=== PATIENT | female | born 1950 | race Caucasian/White ===

== ENCOUNTER 2024-06-17 15:11 | Emergency (ER) | payer MEDICARE, BC ==
[2024-06-17] MEDS ORDERED: Sodium Chloride 0.9% 2.5 ML Syringe FLUSH PRN (15:29)
[2024-06-17] MEDS ORDERED: Sodium Chloride 0.9% 10 ML Syringe FLUSH PRN (15:29)
[2024-06-17] MEDS: Albuterol/Ipratropium 3.0-0.5 MG/3 ML Neb Soln NEB STA (16:31)
[2024-06-17 16:40] LABS: BASOPHILS ABSOLUTE AUTO 0.09 K/uL (0.00-0.20); BASOPHILS PERCENT AUTO 1.1 % (0.0-1.0); EOSINOPHILS ABSOLUTE AUTO 0.16 K/uL (0.00-0.45); EOSINOPHILS PERCENT AUTO 1.9 % (0.0-6.0); HEMATOCRIT 44.1 % (37.0-47.0); IMMATURE GRAN ABSOLUTE AUTO 0.02 K/uL (0.00-0.05); IMMATURE GRAN PERCENT AUTO 0.2 % (0.0-0.4); LYMPHOCYTES PERCENT AUTO 35.6 % (24.0-44.0); MEAN CORPUSCULAR HEMOGLOBIN 28.8 pg (28.0-32.0); MEAN CORPUSCULAR VOLUME 84.8 fL (83.0-99.0); MONOCYTES ABSOLUTE AUTO 0.42 K/uL (0.00-0.80); NEUTROPHILS ABSOLUTE AUTO 4.74 K/uL (1.80-7.70); NEUTROPHILS PERCENT AUTO 56.2 % (41.0-71.0); PLATELET COUNT,PLT 318 K/uL (150-400); WHITE BLOOD CELL COUNT,WBC 8.43 K/uL (3.9-11.3)
[2024-06-17] MEDS: Albuterol 0.083% 2.5 MG/3 ML Neb Soln NEB STA (16:41)
[2024-06-17 17:08] LABS: ALBUMIN 3.7 g/dL (3.4-5.0); BILIRUBIN TOTAL 0.5 mg/dL (0.2-1.0); CALCIUM 8.5 mg/dL (8.5-10.1); CARBON DIOXIDE,CO2 19.8 mmol/L (21.0-32.0); CREATININE 0.9 mg/dL (0.6-1.0); EST CRCL DRUG DOSING (CG) 49.35 mL/min; PROTEIN TOTAL,TP 7.3 g/dL (6.4-8.2)
[2024-06-17] MEDS: Iopamidol 755 MG/ML 500 ML Multipack Bottle IVPUSH STA (19:05)
== END 2024-06-17 20:33 | disposition home or self-care (01) ==
LOC: MW.ED 15:11
DX: J90 Pleural effusion, not elsewhere classified (principal); C50.911 Malignant neoplasm of unspecified site of right female breast; R79.89 Other specified abnormal findings of blood chemistry; Z79.899 Other long term (current) drug therapy; Z75.8 Other problems related to medical facilities and other health care
CPT/HCPCS: 36415; 71046; 71275; 80053; 83690; 83880; 84484; 85025; 87428; 93005; 94640; 99285; Q9967; J7620-GY

== ENCOUNTER 2024-07-07 09:20 | Day surgery (SDC) | payer MEDICARE, BC ==
[~2024-07-07 09:20] MED LIST: Bupivacaine 0.5% 30 ML SDV ONE; Lidocaine 1% 5 ML VIAL ONE; Sodium Chloride 0.9% 10 ML Syringe FLUSH PRN; Sodium Chloride 0.9% 2.5 ML Syringe FLUSH PRN; Sodium Chloride 0.9% 20 ML SDV IV PRN; ceFAZolin 2 GM in Sodium Chloride 0.9% 50 ML IV ONE
[2024-07-07] MEDS: Lactated Ringers 1,000 ML IV SCH (09:42)
[2024-07-07] MEDS ORDERED: Propofol 200 MG/20 ML SDV ONE (10:14)
[2024-07-07] MEDS ORDERED: fentaNYL 100 MCG/2 ML SDV ONE (10:14)
[2024-07-07] MEDS ORDERED: Dexamethasone 4 MG/ML 5 ML MDV ONE (10:36)
[2024-07-07] MEDS ORDERED: Ondansetron 4 MG/2 ML SDV ONE (10:36)
[2024-07-07] MEDS ORDERED: ceFAZolin 2 GM Vial ONE (10:45)
[2024-07-07] MEDS ORDERED: Phenylephrine HCl In 0.9% NaCl 1 MG/10 ML Syringe IVPUSH PRN (11:03)
[2024-07-07] MEDS ORDERED: Morphine 2 MG/ML SYRINGE IVPUSH PRN (11:03)
[2024-07-07] MEDS ORDERED: fentaNYL 50 MCG/ML SDV IVPUSH PRN (11:03)
[2024-07-07] MEDS ORDERED: Metoclopramide 10 MG/2 ML SDV IVPUSH PRN (11:03)
[2024-07-07] MEDS ORDERED: Naloxone 0.4 MG/ML SDV IVPUSH PRN (11:03)
[2024-07-07] MEDS ORDERED: HYDROmorphone 1 MG/ML Syringe IVPUSH PRN (11:03)
[2024-07-07] MEDS ORDERED: Ondansetron 4 MG/2 ML SDV IVPUSH PRN (11:03)
[2024-07-07] MEDS ORDERED: Albuterol 0.083% 2.5 MG/3 ML Neb Soln NEB PRN (11:03)
[2024-07-07] MEDS ORDERED: dexmedeTOMIDine HCl 200 MCG/2 ML SDV ONE (11:25)
== END 2024-07-07 13:05 | disposition home or self-care (01) ==
LOC: MW.SDS 09:20
PROVIDERS: ATTEND Surgery
DX: C50.111 Malignant neoplasm of central portion of right female breast (principal); C79.89 Secondary malignant neoplasm of other specified sites
CPT/HCPCS: 71045; 71045-26; 76000; 76000-26; J0131; J0665; J0690; J1100; J1642; J2405; J2704; J3010; J3490; J7120

== ENCOUNTER 2024-09-19 11:42 | Inpatient (IN) | payer MEDICARE, BC ==
[2024-09-19] MEDS: Sodium Chloride 0.9% 1,000 ML IV ONE (14:30)
[2024-09-19 14:36] LABS: BASOPHILS ABSOLUTE AUTO 0.04 K/uL (0.00-0.20); BASOPHILS PERCENT AUTO 0.4 % (0.0-1.0); EOSINOPHILS ABSOLUTE AUTO 0.07 K/uL (0.00-0.45); EOSINOPHILS PERCENT AUTO 0.7 % (0.0-6.0); HEMATOCRIT 31.8 % (37.0-47.0); HEMOGLOBIN 10.8 g/dL (12.0-16.0); IMMATURE GRAN ABSOLUTE AUTO 0.04 K/uL (0.00-0.05); IMMATURE GRAN PERCENT AUTO 0.4 % (0.0-0.4); LYMPHOCYTES ABSOLUTE AUTO 1.59 K/uL (1.00-4.80); LYMPHOCYTES PERCENT AUTO 15.2 % (24.0-44.0); MEAN CORPUSCULAR HEMOGLOBIN 29.2 pg (28.0-32.0); MEAN CORPUSCULAR VOLUME 85.9 fL (83.0-99.0); MONOCYTES ABSOLUTE AUTO 0.44 K/uL (0.00-0.80); MONOCYTES PERCENT AUTO 4.2 % (0.0-8.0); NEUTROPHILS ABSOLUTE AUTO 8.29 K/uL (1.80-7.70); NEUTROPHILS PERCENT AUTO 79.1 % (41.0-71.0); PLATELET COUNT,PLT 404 K/uL (150-400); WHITE BLOOD CELL COUNT,WBC 10.47 K/uL (3.9-11.3)
[2024-09-19] MEDS: fentaNYL 50 MCG/ML SDV IVPUSH ONE (14:51)
[2024-09-19 15:03] LABS: A/G RATIO 0.8 (0.9-1.6); ALBUMIN 2.4 g/dL (3.4-5.0); BILIRUBIN TOTAL 0.6 mg/dL (0.2-1.0); CALCIUM 7.3 mg/dL (8.5-10.1); CARBON DIOXIDE,CO2 25.2 mmol/L (21.0-32.0); CREATININE 0.8 mg/dL (0.6-1.0); EST CRCL DRUG DOSING (CG) 55.52 mL/min; MAGNESIUM 2.2 mg/dL (1.8-2.4); POTASSIUM,K 3.3 mmol/L (3.5-5.1); PROTEIN TOTAL,TP 5.3 g/dL (6.4-8.2)
[2024-09-19 15:08] LABS: LACTIC ACID 1.5 mmol/L (0.4-2.0)
[2024-09-19] MEDS: Piperacillin/Tazobactam 4.5 GM in Sodium Chloride 0.9% 100 ML IV ONE (15:53)
[2024-09-19] MEDS: Iopamidol 755 MG/ML 500 ML Multipack Bottle IVPUSH STA (16:06)
[2024-09-19] MEDS: Ondansetron 4 MG/2 ML SDV IVPUSH ONE (16:25)
[2024-09-19] MEDS: Morphine 4 MG/ML Syringe IVPUSH ONE (16:25)
[2024-09-19] MEDS: VANCOmycin 1.25 GM in Sodium Chloride 0.9% 250 ML IV ONE (17:03)
[2024-09-19] MEDS: Potassium Chloride 20 MEQ Tab.ER PO ONE (17:46)
[2024-09-19] MEDS ORDERED: oxyCODONE 5 MG Tab PO PRN (18:05)
[2024-09-19] MEDS ORDERED: Polyethylene Glycol 3350 Powder 17 GM Packet PO PRN (18:05)
[2024-09-19] MEDS ORDERED: Ondansetron 4 MG Tab.DIS PO PRN (18:05)
[2024-09-19] MEDS ORDERED: Acetaminophen 325 MG Tab PO PRN (18:05)
[2024-09-19] MEDS ORDERED: Naloxone 0.4 MG/ML SDV IVPUSH PRN (18:05)
[2024-09-19] MEDS ORDERED: Ondansetron 4 MG/2 ML SDV IVPUSH PRN (18:05)
[2024-09-19] MEDS ORDERED: Docusate Sodium 100 MG Cap PO PRN (18:05)
[2024-09-19] MEDS ORDERED: HYDROmorphone 0.5 MG/0.5 ML Syringe IVPUSH PRN (18:05)
[2024-09-19] MEDS: Sodium Chloride 0.9% 1,000 ML IV SCH (20:06)
[2024-09-19 20:39] LABS: BILIRUBIN,URINE NEGATIVE (NEGATIVE); COLOR,URINE YELLOW; GLUCOSE,URINE NEGATIVE (NEGATIVE); KETONES,URINE NEGATIVE (NEGATIVE); LEUKOCYTE ESTERASE,URINE SMALL (NEGATIVE); NITRITE,URINE NEGATIVE (NEGATIVE); OCCULT BLOOD,URINE NEGATIVE (NEGATIVE); PROTEIN,URINE NEGATIVE (NEGATIVE)
[2024-09-19 20:44] LABS: APPEARANCE,URINE HAZY
[2024-09-19 20:52] LABS: BACTERIA,URINE RARE (NEGATIVE); EPITHELIAL CELLS,URINE RARE (NONE-FEW); RBC,URINE 0-1 (0-2/HPF)
[2024-09-19] MEDS: cefTRIAXone 1 GM in Water For Injection, Sterile 10 ML IVPUSH SCH (22:10)
[2024-09-19] MEDS: Phosphorus #1 250 MG Tab PO SCH (23:20)
[2024-09-20 05:44] LABS: BASOPHILS ABSOLUTE AUTO 0.07 K/uL (0.00-0.20); BASOPHILS PERCENT AUTO 0.6 % (0.0-1.0); EOSINOPHILS ABSOLUTE AUTO 0.43 K/uL (0.00-0.45); EOSINOPHILS PERCENT AUTO 3.8 % (0.0-6.0); HEMATOCRIT 31.6 % (37.0-47.0); HEMOGLOBIN 10.5 g/dL (12.0-16.0); IMMATURE GRAN ABSOLUTE AUTO 0.06 K/uL (0.00-0.05); IMMATURE GRAN PERCENT AUTO 0.5 % (0.0-0.4); LYMPHOCYTES ABSOLUTE AUTO 1.53 K/uL (1.00-4.80); LYMPHOCYTES PERCENT AUTO 13.6 % (24.0-44.0); MEAN CORPUSCULAR HEMOGLOBIN 29.1 pg (28.0-32.0); MEAN CORPUSCULAR HGB CONC 33.2 g/dL (32.0-36.0); MEAN CORPUSCULAR VOLUME 87.5 fL (83.0-99.0); MEAN PLATELET VOLUME 9.2 fL (9.4-12.3); MONOCYTES ABSOLUTE AUTO 0.52 K/uL (0.00-0.80); MONOCYTES PERCENT AUTO 4.6 % (0.0-8.0); NEUTROPHILS ABSOLUTE AUTO 8.64 K/uL (1.80-7.70); NEUTROPHILS PERCENT AUTO 76.9 % (41.0-71.0); PLATELET COUNT,PLT 360 K/uL (150-400); RED BLOOD CELL COUNT 3.61 M/uL (4.10-5.30); WHITE BLOOD CELL COUNT,WBC 11.25 K/uL (3.9-11.3)
[2024-09-20] MEDS: Furosemide 40 MG/4 ML VIAL IVPUSH ONE (06:05)
[2024-09-20 06:27] LABS: A/G RATIO 0.7 (0.9-1.6); ALBUMIN 2.1 g/dL (3.4-5.0); BILIRUBIN TOTAL 0.6 mg/dL (0.2-1.0); CALCIUM 6.3 mg/dL (8.5-10.1); CARBON DIOXIDE,CO2 20.6 mmol/L (21.0-32.0); CREATININE 0.7 mg/dL (0.6-1.0); EST CRCL DRUG DOSING (CG) 63.45 mL/min; PHOSPHORUS 1.9 mg/dL (2.6-4.7); POTASSIUM,K 3.5 mmol/L (3.5-5.1)
[2024-09-20] MEDS ORDERED: Albuterol/Ipratropium 3.0-0.5 MG/3 ML Neb Soln NEB PRN (06:55)
[2024-09-20] MEDS: Azithromycin 500 MG in Sodium Chloride 0.9% 250 ML IV SCH (07:49)
[2024-09-20 08:58] LABS: CORONAVIRUS COVID-19 NAA NEGATIVE (NEGATIVE); INFLUENZA A NAA NEGATIVE (NEGATIVE); INFLUENZA B NAA NEGATIVE (NEGATIVE); RESPIRATORY SYNCYTIAL VIR NAA NEGATIVE (NEGATIVE)
[2024-09-20] MEDS: Enoxaparin 40 MG/0.4 ML Syringe SUBCUT SCH (09:39)
[2024-09-20] MEDS: VANCOmycin 750 MG in Sodium Chloride 0.9% 250 ML IV SCH (11:19)
[2024-09-21 05:03] LABS: BORDETELLA PARAPERT IS1001 Not Detected (Not Detected)
[2024-09-21 05:48] LABS: BASOPHILS ABSOLUTE AUTO 0.05 K/uL (0.00-0.20); BASOPHILS PERCENT AUTO 0.5 % (0.0-1.0); EOSINOPHILS ABSOLUTE AUTO 0.22 K/uL (0.00-0.45); EOSINOPHILS PERCENT AUTO 2.4 % (0.0-6.0); HEMATOCRIT 29.2 % (37.0-47.0); HEMOGLOBIN 9.7 g/dL (12.0-16.0); IMMATURE GRAN ABSOLUTE AUTO 0.04 K/uL (0.00-0.05); IMMATURE GRAN PERCENT AUTO 0.4 % (0.0-0.4); LYMPHOCYTES ABSOLUTE AUTO 1.57 K/uL (1.00-4.80); LYMPHOCYTES PERCENT AUTO 17.1 % (24.0-44.0); MEAN CORPUSCULAR HGB CONC 33.2 g/dL (32.0-36.0); MEAN CORPUSCULAR VOLUME 87.2 fL (83.0-99.0); MEAN PLATELET VOLUME 9.3 fL (9.4-12.3); MONOCYTES ABSOLUTE AUTO 0.59 K/uL (0.00-0.80); MONOCYTES PERCENT AUTO 6.4 % (0.0-8.0); NEUTROPHILS ABSOLUTE AUTO 6.71 K/uL (1.80-7.70); NEUTROPHILS PERCENT AUTO 73.2 % (41.0-71.0); PLATELET COUNT,PLT 333 K/uL (150-400); RED BLOOD CELL COUNT 3.35 M/uL (4.10-5.30); WHITE BLOOD CELL COUNT,WBC 9.18 K/uL (3.9-11.3)
[2024-09-21 06:17] LABS: A/G RATIO 0.7 (0.9-1.6); ALBUMIN 1.9 g/dL (3.4-5.0); BILIRUBIN TOTAL 0.6 mg/dL (0.2-1.0); CALCIUM 5.5 mg/dL (8.5-10.1); CARBON DIOXIDE,CO2 27.3 mmol/L (21.0-32.0); CREATININE 0.6 mg/dL (0.6-1.0); EST CRCL DRUG DOSING (CG) 74.02 mL/min; MAGNESIUM 1.7 mg/dL (1.8-2.4); PHOSPHORUS 2.3 mg/dL (2.6-4.7); POTASSIUM,K 2.8 mmol/L (3.5-5.1); PROTEIN TOTAL,TP 4.6 g/dL (6.4-8.2)
[2024-09-21] MEDS: Azithromycin 500 MG in Sodium Chloride 0.9% 250 ML IV SCH (06:20)
[2024-09-21] MEDS: Potassium Chloride 20 MEQ Tab.ER PO SCH ×2 (08:43→20:57)
[2024-09-21] MEDS: Magnesium Sulfate 2 GM/50 mL 2 GM in Premix Bag 1 BAG IV ONE (08:55)
[2024-09-21] MEDS: Phosphorus #1 250 MG Tab PO SCH (12:05)
[2024-09-21] MEDS: Potassium Chloride 20 MEQ Tab.ER PO ONE (14:55)
[2024-09-21 15:45] LABS: CALCIUM 6.1 mg/dL (8.5-10.1); CARBON DIOXIDE,CO2 26.3 mmol/L (21.0-32.0); CREATININE 0.6 mg/dL (0.6-1.0); EST CRCL DRUG DOSING (CG) 74.02 mL/min; POTASSIUM,K 3.4 mmol/L (3.5-5.1)
[2024-09-21] MEDS: predniSONE 10 MG Tab PO ONE (16:58)
[2024-09-22] MEDS: Loperamide 2 MG Cap PO PRN (02:34)
[2024-09-22 06:24] LABS: BASOPHILS ABSOLUTE AUTO 0.01 K/uL (0.00-0.20); BASOPHILS PERCENT AUTO 0.1 % (0.0-1.0); HEMATOCRIT 28.3 % (37.0-47.0); HEMOGLOBIN 9.5 g/dL (12.0-16.0); IMMATURE GRAN ABSOLUTE AUTO 0.03 K/uL (0.00-0.05); IMMATURE GRAN PERCENT AUTO 0.4 % (0.0-0.4); LYMPHOCYTES ABSOLUTE AUTO 1.44 K/uL (1.00-4.80); LYMPHOCYTES PERCENT AUTO 17.8 % (24.0-44.0); MEAN CORPUSCULAR HEMOGLOBIN 29.4 pg (28.0-32.0); MEAN CORPUSCULAR HGB CONC 33.6 g/dL (32.0-36.0); MEAN CORPUSCULAR VOLUME 87.6 fL (83.0-99.0); MEAN PLATELET VOLUME 9.3 fL (9.4-12.3); MONOCYTES ABSOLUTE AUTO 0.37 K/uL (0.00-0.80); MONOCYTES PERCENT AUTO 4.6 % (0.0-8.0); NEUTROPHILS ABSOLUTE AUTO 6.26 K/uL (1.80-7.70); NEUTROPHILS PERCENT AUTO 77.1 % (41.0-71.0); PLATELET COUNT,PLT 354 K/uL (150-400); RED BLOOD CELL COUNT 3.23 M/uL (4.10-5.30); WHITE BLOOD CELL COUNT,WBC 8.11 K/uL (3.9-11.3)
[2024-09-22 06:47] LABS: A/G RATIO 0.7 (0.9-1.6); BILIRUBIN TOTAL 0.4 mg/dL (0.2-1.0); CALCIUM 5.8 mg/dL (8.5-10.1); CARBON DIOXIDE,CO2 24.1 mmol/L (21.0-32.0); CREATININE 0.5 mg/dL (0.6-1.0); EST CRCL DRUG DOSING (CG) 88.83 mL/min; MAGNESIUM 2.4 mg/dL (1.8-2.4); PHOSPHORUS 2.3 mg/dL (2.6-4.7); POTASSIUM,K 4.1 mmol/L (3.5-5.1); PROTEIN TOTAL,TP 4.8 g/dL (6.4-8.2)
[2024-09-22] MEDS: predniSONE 20 MG Tab PO SCH (09:16)
[2024-09-22] MEDS: Spironolactone 25 MG Tab PO SCH (10:05)
[2024-09-22] MEDS: Phosphorus #1 250 MG Tab PO SCH (12:04)
[2024-09-23 06:07] LABS: BASOPHILS ABSOLUTE AUTO 0.01 K/uL (0.00-0.20); BASOPHILS PERCENT AUTO 0.1 % (0.0-1.0); EOSINOPHILS ABSOLUTE AUTO 0.01 K/uL (0.00-0.45); EOSINOPHILS PERCENT AUTO 0.1 % (0.0-6.0); HEMATOCRIT 26.7 % (37.0-47.0); HEMOGLOBIN 9.2 g/dL (12.0-16.0); IMMATURE GRAN ABSOLUTE AUTO 0.03 K/uL (0.00-0.05); IMMATURE GRAN PERCENT AUTO 0.4 % (0.0-0.4); LYMPHOCYTES ABSOLUTE AUTO 1.56 K/uL (1.00-4.80); LYMPHOCYTES PERCENT AUTO 19.9 % (24.0-44.0); MEAN CORPUSCULAR HEMOGLOBIN 30.3 pg (28.0-32.0); MEAN CORPUSCULAR HGB CONC 34.5 g/dL (32.0-36.0); MEAN CORPUSCULAR VOLUME 87.8 fL (83.0-99.0); MEAN PLATELET VOLUME 8.9 fL (9.4-12.3); MONOCYTES ABSOLUTE AUTO 0.56 K/uL (0.00-0.80); MONOCYTES PERCENT AUTO 7.2 % (0.0-8.0); NEUTROPHILS ABSOLUTE AUTO 5.66 K/uL (1.80-7.70); NEUTROPHILS PERCENT AUTO 72.3 % (41.0-71.0); PLATELET COUNT,PLT 355 K/uL (150-400); RED BLOOD CELL COUNT 3.04 M/uL (4.10-5.30); WHITE BLOOD CELL COUNT,WBC 7.83 K/uL (3.9-11.3)
[2024-09-23 06:32] LABS: A/G RATIO 0.6 (0.9-1.6); ALBUMIN 1.8 g/dL (3.4-5.0); BILIRUBIN TOTAL 0.4 mg/dL (0.2-1.0); CALCIUM 5.8 mg/dL (8.5-10.1); CARBON DIOXIDE,CO2 25.1 mmol/L (21.0-32.0); CREATININE 0.5 mg/dL (0.6-1.0); EST CRCL DRUG DOSING (CG) 88.83 mL/min; MAGNESIUM 2.3 mg/dL (1.8-2.4); PHOSPHORUS 2.3 mg/dL (2.6-4.7); POTASSIUM,K 3.7 mmol/L (3.5-5.1); PROTEIN TOTAL,TP 4.6 g/dL (6.4-8.2)
[2024-09-23] MEDS: Potassium Chloride 20 MEQ Tab.ER PO ONE (09:28)
[2024-09-23] MEDS: Furosemide 40 MG/4 ML VIAL IVPUSH SCH (13:36)
== END 2024-09-23 18:25 | disposition home or self-care (01) | DRG 600 ==
LOC: MW.ED 11:42 → MW.MS 17:25
PROVIDERS: ADMIT Internal Medicine; ATTEND Internal Medicine
DX: N61.0 Mastitis without abscess (principal); C77.9 Secondary and unspecified malignant neoplasm of lymph node, unspecified; D84.821 Immunodeficiency due to drugs; C78.02 Secondary malignant neoplasm of left lung; C79.51 Secondary malignant neoplasm of bone; T45.1X5A Adverse effect of antineoplastic and immunosuppressive drugs, initial encounter; E87.6 Hypokalemia; H54.7 Unspecified visual loss; I95.1 Orthostatic hypotension; E83.39 Other disorders of phosphorus metabolism; J98.4 Other disorders of lung; Z66 Do not resuscitate; R79.89 Other specified abnormal findings of blood chemistry; E83.42 Hypomagnesemia; Z79.899 Other long term (current) drug therapy
CPT/HCPCS: 0241U; 36415; 71045; 71045-26; 71260; 71260-26; 80048; 80053; 80202; 81001; 82330; 83605; 83690; 83735; 83880; 84100; 85025; 87086; 87324; 87486; 87581; 87633; 93005; 93306; 94667; 96361; 96365; 96367; 96375; 97162-GP; 97530-GP; 99284; 99285-25; A9270-GY; J0456; J0696; J1642; J1650; J1938; J2270; J2405; J2543; J3010; J3370; J3371; J3475; J7030; J7050; Q9967

== ENCOUNTER 2024-12-07 09:47 | Observation (INO) | payer MEDICARE, BC ==
[2024-12-07] MEDS ORDERED: Sodium Chloride 0.9% 2.5 ML Syringe FLUSH PRN (12:35)
[2024-12-07] MEDS ORDERED: Ondansetron 4 MG/2 ML SDV IVPUSH PRN (12:35)
[2024-12-07] MEDS ORDERED: Sodium Chloride 0.9% 10 ML Syringe FLUSH PRN (12:35)
[2024-12-07] MEDS ORDERED: Naloxone 0.4 MG/ML SDV IVPUSH PRN (12:54)
[2024-12-08 06:24] LABS: BASOPHILS ABSOLUTE AUTO 0.07 K/uL (0.00-0.20); BASOPHILS PERCENT AUTO 0.7 % (0.0-1.0); EOSINOPHILS ABSOLUTE AUTO 0.20 K/uL (0.00-0.45); EOSINOPHILS PERCENT AUTO 2.0 % (0.0-6.0); IMMATURE GRAN ABSOLUTE AUTO 0.04 K/uL (0.00-0.05); IMMATURE GRAN PERCENT AUTO 0.4 % (0.0-0.4); LYMPHOCYTES ABSOLUTE AUTO 1.61 K/uL (1.00-4.80); LYMPHOCYTES PERCENT AUTO 16.3 % (24.0-44.0); MEAN PLATELET VOLUME 9.2 fL (9.4-12.3); MONOCYTES ABSOLUTE AUTO 0.57 K/uL (0.00-0.80); MONOCYTES PERCENT AUTO 5.8 % (0.0-8.0); NEUTROPHILS ABSOLUTE AUTO 7.38 K/uL (1.80-7.70); NEUTROPHILS PERCENT AUTO 74.8 % (41.0-71.0); NRBC ABSOLUTE 0.00 K/uL (0.00-0.02); NRBC PERCENT 0.0 /100WBC (0.0-0.2); PLATELET COUNT,PLT 388 K/uL (150-400); RED BLOOD CELL COUNT 4.71 M/uL (4.10-5.30); WHITE BLOOD CELL COUNT,WBC 9.87 K/uL (3.9-11.3)
[2024-12-08 06:56] LABS: BLOOD UREA NITROGEN,BUN 21.0 mg/dL (7.0-18.0); CARBON DIOXIDE,CO2 23.8 mmol/L (21.0-32.0); CHLORIDE,CL 102.0 mmol/L (98-107); CREATININE 0.9 mg/dL (0.6-1.0); EST CRCL DRUG DOSING (CG) 46.75 mL/min; GLUCOSE RANDOM 88.0 mg/dL (74-106); POTASSIUM,K 4.2 mmol/L (3.5-5.1); SODIUM,NA 136.0 mmol/L (136-145)
[2024-12-08 07:05] LABS: ESTIMATED GFR 67.0 mL/min (>60)
== END 2024-12-08 15:37 | disposition home or self-care (01) ==
LOC: MW.CHIM 09:47 → MW.MS 12:14
PROVIDERS: ADMIT Family Medicine; ATTEND Family Medicine
DX: J93.9 Pneumothorax, unspecified (principal); J90 Pleural effusion, not elsewhere classified; C50.919 Malignant neoplasm of unspecified site of unspecified female breast; Z79.899 Other long term (current) drug therapy
CPT/HCPCS: 32555; 36415; 71045; 80048; 85025; A9270; G0378; 99222; 99238

== ENCOUNTER 2025-01-25 07:23 | Emergency (ER) | payer MEDICARE, BC ==
[2025-01-25 08:50] LABS: BASOPHILS ABSOLUTE AUTO 0.10 K/uL (0.00-0.20); BASOPHILS PERCENT AUTO 1.3 % (0.0-1.0); EOSINOPHILS ABSOLUTE AUTO 0.09 K/uL (0.00-0.45); EOSINOPHILS PERCENT AUTO 1.1 % (0.0-6.0); IMMATURE GRAN ABSOLUTE AUTO 0.18 K/uL (0.00-0.05); IMMATURE GRAN PERCENT AUTO 2.3 % (0.0-0.4); LYMPHOCYTES ABSOLUTE AUTO 2.45 K/uL (1.00-4.80); LYMPHOCYTES PERCENT AUTO 30.7 % (24.0-44.0); MEAN PLATELET VOLUME 9.1 fL (9.4-12.3); MONOCYTES ABSOLUTE AUTO 0.44 K/uL (0.00-0.80); MONOCYTES PERCENT AUTO 5.5 % (0.0-8.0); NEUTROPHILS ABSOLUTE AUTO 4.72 K/uL (1.80-7.70); NEUTROPHILS PERCENT AUTO 59.1 % (41.0-71.0); NRBC ABSOLUTE 0.00 K/uL (0.00-0.02); NRBC PERCENT 0.0 /100WBC (0.0-0.2); PLATELET COUNT,PLT 236 K/uL (150-400); RED BLOOD CELL COUNT 5.42 M/uL (4.10-5.30); WHITE BLOOD CELL COUNT,WBC 7.98 K/uL (3.9-11.3)
[2025-01-25 08:52] LABS: APPEARANCE,URINE CLEAR; GLUCOSE,URINE NEGATIVE (NEGATIVE); OCCULT BLOOD,URINE NEGATIVE (NEGATIVE)
[2025-01-25] MEDS: Ketorolac 30 MG/ML SDV IVPUSH ONE (08:56)
[2025-01-25 09:17] LABS: ALANINE AMINOTRANSFERASE,ALT 130.0 IU/L (14-63); ASPARTATE AMNIOTRANSFERASE,AST 171.0 IU/L (15-37); BILIRUBIN TOTAL 0.2 mg/dL (0.2-1.0); BLOOD UREA NITROGEN,BUN 20.0 mg/dL (7.0-18.0); CARBON DIOXIDE,CO2 24.2 mmol/L (21.0-32.0); CHLORIDE,CL 100.0 mmol/L (98-107); CREATININE 1.1 mg/dL (0.6-1.0); EST CRCL DRUG DOSING (CG) 38.89 mL/min; GLUCOSE RANDOM 81.0 mg/dL (74-106); POTASSIUM,K 4.7 mmol/L (3.5-5.1); PROTEIN TOTAL,TP 7.2 g/dL (6.4-8.2); SODIUM,NA 132.0 mmol/L (136-145)
[2025-01-25 09:24] LABS: A/G RATIO 0.9 (0.9-1.6); ESTIMATED GFR 53.0 mL/min (>60)
[2025-01-25 09:36] LABS: LACTIC ACID 2.5 mmol/L (0.4-2.0)
[2025-01-25] MEDS: Iopamidol 755 MG/ML 500 ML Multipack Bottle IVPUSH STA (10:00)
== END 2025-01-25 14:05 | disposition home or self-care (01) ==
LOC: MW.ED 07:23
DX: R06.02 Shortness of breath (principal); Z79.899 Other long term (current) drug therapy
CPT/HCPCS: 36415; 70450; 71275; 74177; 80053; 81003; 83605; 83690; 83735; 84484; 85025; 96361; 96374; 99285; J1885; J7030; Q9967; 93010; 99284

== ENCOUNTER 2025-01-30 03:03 | Emergency (ER) | payer MEDICARE, BC ==
[2025-01-30] MEDS ORDERED: Sodium Chloride 0.9% 10 ML Syringe FLUSH PRN (03:07)
[2025-01-30] MEDS ORDERED: Sodium Chloride 0.9% 2.5 ML Syringe FLUSH PRN (03:07)
[2025-01-30 03:13] LABS: BASOPHILS ABSOLUTE AUTO 0.07 K/uL (0.00-0.20); BASOPHILS PERCENT AUTO 0.5 % (0.0-1.0); EOSINOPHILS ABSOLUTE AUTO 0.01 K/uL (0.00-0.45); EOSINOPHILS PERCENT AUTO 0.1 % (0.0-6.0); IMMATURE GRAN ABSOLUTE AUTO 0.34 K/uL (0.00-0.05); IMMATURE GRAN PERCENT AUTO 2.5 % (0.0-0.4); LYMPHOCYTES ABSOLUTE AUTO 3.61 K/uL (1.00-4.80); LYMPHOCYTES PERCENT AUTO 26.7 % (24.0-44.0); MEAN PLATELET VOLUME 8.7 fL (9.4-12.3); MONOCYTES ABSOLUTE AUTO 0.60 K/uL (0.00-0.80); MONOCYTES PERCENT AUTO 4.4 % (0.0-8.0); NEUTROPHILS ABSOLUTE AUTO 8.91 K/uL (1.80-7.70); NEUTROPHILS PERCENT AUTO 65.8 % (41.0-71.0); NRBC ABSOLUTE 0.04 K/uL (0.00-0.02); NRBC PERCENT 0.3 /100WBC (0.0-0.2); PLATELET COUNT,PLT 183 K/uL (150-400); RED BLOOD CELL COUNT 5.06 M/uL (4.10-5.30); WHITE BLOOD CELL COUNT,WBC 13.54 K/uL (3.9-11.3)
[2025-01-30] MEDS: LORazepam 2 MG/ML SDV IVPUSH ONE (03:17)
[2025-01-30 03:26] LABS: INR 1.12 (0.86-1.11)
[2025-01-30 03:30] LABS: BASE EXCESS VENOUS -10.1 (-2.0-3.0); BICARBONATE,VENOUS 23.0 mEq/L (22-29); PCO2 VENOUS 89.0 mmHG (41-51); PH,VENOUS 7.02 (7.32-7.43); PO2 VENOUS 57.0 mmHG (35-45)
[2025-01-30 03:42] LABS: A/G RATIO 0.9 (0.9-1.6); ALANINE AMINOTRANSFERASE,ALT 83 IU/L (14-63); ASPARTATE AMNIOTRANSFERASE,AST 135 IU/L (15-37); BILIRUBIN TOTAL 0.4 mg/dL (0.2-1.0); BLOOD UREA NITROGEN,BUN 19 mg/dL (7.0-18.0); CARBON DIOXIDE,CO2 24.8 mmol/L (21.0-32.0); CHLORIDE,CL 86 mmol/L (98-107); CREATININE 1.0 mg/dL (0.6-1.0); GLUCOSE RANDOM 130 mg/dL (74-106); POTASSIUM,K 5.3 mmol/L (3.5-5.1); PRO B-TYPE NATRIUR PEPT,BNPPRO 11183 pg/mL (0-125); PROTEIN TOTAL,TP 7.0 g/dL (6.4-8.2)
[2025-01-30 03:48] LABS: ESTIMATED GFR 59 mL/min (>60); SODIUM,NA 118 mmol/L (136-145)
[2025-01-30] MEDS ORDERED: LORazepam 2 MG/ML SDV IVPUSH PRN (03:54)
== END 2025-01-30 04:40 | disposition expired ==
LOC: MW.ED 03:03
DX: J96.01 Acute respiratory failure with hypoxia (principal); I50.9 Heart failure, unspecified; R79.0 Abnormal level of blood mineral; J90 Pleural effusion, not elsewhere classified; E87.1 Hypo-osmolality and hyponatremia; R79.89 Other specified abnormal findings of blood chemistry; Z51.5 Encounter for palliative care; Z85.118 Personal history of other malignant neoplasm of bronchus and lung
CPT/HCPCS: 36415; 71045; 80053; 82803; 83605; 83690; 83735; 83880; 84484; 85025; 85610; 93005; 96374; 96375; 99285; J1171; J1596; J2060; 93010; 99284